=== PATIENT | female | born 1965 | race Caucasian/White ===

== ENCOUNTER 2020-06-19 09:00 | Outpatient (RCR) | payer OTHER, SELFPAY ==
--- NOTE | 2020-06-19 11:29 | MHC.PT.DC ---
[facility] [place] [facility] [place] [facility] [place] Office [address] Michelle Greene [address] [phone] F: [phone] F: [phone] F: [phone] F: [phone] Physical Therapy Discharge Report Diagnosis: R KNEE PAIN Date of Surgery: Date of Evaluation: 05/17/20 Date of Discharge: 06/19/20 Treatments to Date: 8 Cancellations to Date: 0 No Shows to Date: 1 Discharge Status: Achieved Goals Independent with HEP Discharge Summary: 06/19/20 GOOD PERF OF EXS HAS MET MOST PT GOALS. DC TODAY WITH HEP AND GIVEN INFO RE [facility]. LEFI AT SOC=, LEFI AT DC= 54 YO FEMALE REF TO PT FOR RIGHT KNEE PAIN- NO TRAUMA. 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 HER SXS ARE INCREASED W FATS PACED OR LONG DURATION AMB, STAIR MGMT, SQUATTING, OR INCR STANDING. SHE HAS SOME LAXITY WITH VALGUS STRESS RIGHT > LEFT KNEE, (+) PFPS W INFRAPATELLAR FAT PAD IRRIT, GENERAL WEAKNESS IN GLUTES AND LEs, AND TIGHT HIP FLEXORS- SHE WOULD BENEFIT FROM PT TO DEV A HEP, IMPROVE FUNCT MOB JOE, AND ADDRESS THE MECHANICAL DEFICITS OF PFPS. [ End ] Please sign and return to therapist. Thank you for your referral.
--- NOTE | 2020-06-19 11:30 | MHC.PT.DC ---
[facility] [place] Office [place] [facility] [place] [facility] [address] Michelle Greene [address] [phone] F: [phone] F: [phone] F: [phone] F: [phone] Physical Therapy Discharge Report Diagnosis: R KNEE PAIN Date of Surgery: Date of Evaluation: 05/17/20 Date of Discharge: 06/19/20 Treatments to Date: 8 Cancellations to Date: 0 No Shows to Date: 1 Discharge Status: Achieved Goals Independent with HEP Discharge Summary: 06/19/20 GOOD PERF OF EXS HAS MET MOST PT GOALS. DC TODAY WITH HEP AND GIVEN INFO RE [facility]. LEFI AT SOC=, LEFI AT DC= 54 YO FEMALE REF TO PT FOR RIGHT KNEE PAIN- NO TRAUMA. 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 HER SXS ARE INCREASED W FATS PACED OR LONG DURATION AMB, STAIR MGMT, SQUATTING, OR INCR STANDING. SHE HAS SOME LAXITY WITH VALGUS STRESS RIGHT > LEFT KNEE, (+) PFPS W INFRAPATELLAR FAT PAD IRRIT, GENERAL WEAKNESS IN GLUTES AND LEs, AND TIGHT HIP FLEXORS- SHE WOULD BENEFIT FROM PT TO DEV A HEP, IMPROVE FUNCT MOB JOE, AND ADDRESS THE MECHANICAL DEFICITS OF PFPS. [ End ] Please sign and return to therapist. Thank you for your referral.
== END 2020-07-02 11:04 | disposition other institution (70) ==
LOC: HO.PT 09:00
PROVIDERS: PCP Internal Medicine; Visit Provider Internal Medicine
DX: M25.561 Pain in right knee (principal)
CPT/HCPCS: 97110